=== PATIENT | female | born 1975 | race Caucasian/White ===

== ENCOUNTER 2018-08-20 10:46 | Emergency (ER) | payer BC, SELFPAY ==
[2018-08-20 10:49] VITALS: BP 172/92; PULSE 94; RESP 14; TEMP 36.7; O2SAT 100
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
== END 2018-08-20 11:27 | disposition home or self-care (01) ==
PROVIDERS: Emergency Provider Emergency Medicine; PCP Physician Assistant Medical
DX: S42.021A Displaced fracture of shaft of right clavicle, initial encounter for closed fracture (principal); V18.0XXA Pedal cycle driver injured in noncollision transport accident in nontraffic accident, initial encounter
CPT/HCPCS: 99283; 73000; 99282; L3650

== ENCOUNTER 2018-08-31 13:39 | Outpatient (CLI) | payer BC, SELFPAY ==
--- NOTE | 2018-08-31 13:29 | DI.RAD_ITS ---
SYMPTOM/DIAGNOSIS: F/U FX RIGHT CLAVICLE: Comparison is made with 08/20/18. There has been no change in the mid clavicle fracture.
== END 2018-08-31 13:59 ==
PROVIDERS: PCP Physician Assistant Medical; Visit Provider Student in an Organized Health Care Education/Training Program
DX: S42.021D Displaced fracture of shaft of right clavicle, subsequent encounter for fracture with routine healing (principal)
CPT/HCPCS: 73000

== ENCOUNTER 2018-09-21 09:47 | Outpatient (CLI) | payer BC, SELFPAY ==
--- NOTE | 2018-09-21 08:10 | DI.RAD_ITS ---
SYMPTOMS/DIAGNOSIS: F/U RT CLAVICLE FRACTURE RIGHT CLAVICLE: Two views. Comparison 08/31/18. There is again seen a fracture of the mid shaft of the right clavicle. The apex of the fracture is superiorly directed. There has been slight worsening of the displacement of the fracture since 08/31/18. No new fracture or dislocation is seen. IMPRESSION: Right mid clavicular fracture now with mild progressive displacement of the fracture noted since 08/31/18.
== END 2018-09-21 10:07 ==
PROVIDERS: PCP Physician Assistant Medical; Visit Provider Physician Assistant
DX: S42.021G Displaced fracture of shaft of right clavicle, subsequent encounter for fracture with delayed healing (principal)
CPT/HCPCS: 73000

== ENCOUNTER 2018-10-05 09:49 | Outpatient (CLI) | payer BC, SELFPAY ==
--- NOTE | 2018-10-05 08:44 | DI.RAD_ITS ---
SYMPTOMS/DIAGNOSIS: F/U RT CLOSED CLAVICLE FRACTURE RIGHT CLAVICLE: Two views. Comparison 09/21/18. There has been no change in alignment of the fracture of the mid shaft of the right clavicle. There is callous formation about the fracture site consistent with some interval healing. No new fractures or dislocations are present.
== END 2018-10-05 10:09 ==
PROVIDERS: PCP Physician Assistant Medical; Visit Provider Physician Assistant
DX: S42.021D Displaced fracture of shaft of right clavicle, subsequent encounter for fracture with routine healing (principal)
CPT/HCPCS: 73000

== ENCOUNTER 2019-01-29 06:54 | Day surgery (SDC) | payer BC, SELFPAY ==
[2019-01-29 07:27] VITALS: BP 158/99; PULSE 77; RESP 16; TEMP 36.6; O2SAT 98
[2019-01-29] MEDS: Lactated Ringers 1,000 ML 80 ML IV (07:50)
[2019-01-29] MEDS: ceFAZolin 1 GM/50 ML BAG IVPB (08:25)
[2019-01-29] MEDS: Bupivacaine 0.5% Pres-Free 30 ML VIAL (08:33)
[2019-01-29] MEDS: Lidocaine 1% Multi-Dose 50 ML VIAL (08:33)
[2019-01-29] MEDS: Dexamethasone 4 MG/ML VIAL (09:37)
--- NOTE | 2019-01-29 09:52 | W.PM.DSUDISC ---
Discharge Plan Disposition Patient Disposition: HOME Condition: Good Discharge Details Reason For Visit: HAV (R) Attending Provider: Finn Tucker Primary Care Provider: Corry Cordero V Home Meds and New Rx's Prescriptions: New hydrocodone-acetaminophen [[place]] 5-325 mg tablet 1 tab PO Q6H PRN (Reason: post op pain) Qty: 7 RF: 0 ibuprofen 600 mg tablet 600 mg PO Q6H Qty: 40 RF: 0 Continued fexofenadine [[place] Allergy] 180 mg Tablet 180 mg PO DAILY PRNRF: 0 albuterol sulfate [ProAir HFA] 90 mcg/actuation Hfa Aerosol Inhaler 2 puff INHALATION 6XD RF: 0 Flovent HFA 110 mcg/actuation Hfa Aerosol Inhaler 1 puff INHALATION BID RF: 0 bupropion HCl 150 mg Tablet Extended Release 24 Hr 150 mg PO QAM RF: 0 cholecalciferol (vitamin D3) [Vitamin D3] 1,000 unit Tablet,Chewable 1,000 unit PO DAILY RF: 0 Discharge Instructions Activity:: Elevate Remove Dressings/Wound Care:: Do Not Remove Shower/Bathe:: Cover Diet:: Normal Diet Discharge Orders Discharge Orders: Discharge Order (Routine); Ordered 01/29/19 Ordered By: Finn Tucker DS: Diagnosis Discharge Diagnosis (1) Hallux valgus (acquired), right foot: Start date: 01/29/19 Start time: 09:53 Status: Acute
[2019-01-29 10:20] VITALS: BP 151/97; PULSE 63; RESP 16; TEMP 36.3; O2SAT 99
--- NOTE | 2019-01-29 10:44 | ROE_ITS ---
DATE OF PROCEDURE: January 29, 2019 PREOPERATIVE DIAGNOSIS: Painful right hallux abductovalgus deformity. POSTOPERATIVE DIAGNOSIS: Same. PROCEDURE: Dean bunionectomy with internal fixation utilizing 3.5 Synthes cortical screws x2. SURGEON: Finn Tucker D.P.M. ANESTHESIA: General. ANESTHESIA PROVIDER: Raphael Parmar CRNA OPERATIVE INDICATIONS: 44-year-old female with progressive pain associated with a right bunion defor mity, which has not responded to nonoperative treatments. She understands risks and complications of surgery pertaining to pain, scarring, infection, wound dehiscence, over-correction, under-correction of the deformity; malunion, nonunion, delayed union of the osteotomy, difficulty with the hardware p otentially requiring hardware removal and/or revisional procedures. Informed consent has been obtain ed. There are no promises made to the final outcome of surgery. REPORT OF OPERATION: Sarahi was brought to the operative suite and placed in the supine position wh ere the right foot was prepped and draped in the usual sterile podiatric fashion. A time-out was per formed. Attention was directed to the right foot, which was exsanguinated, a well-padded ankle tourn iquet inflated 250 mmHg. Attention was directed to the first MPJ where a 5 cm incision was made medial parallel to the EHL ten don. The incision was deepened in controlled depth fashion; hemostasis acquired by electrocautery, a s needed. Dissection was carried down to the joint capsule. Contracture along the lateral side of t he joint was appreciated. A lateral capsulotomy was performed. The adductor tendon was released. T he fibular sesamoid was visualized; it was mobilized and appeared to go back under the first metatars al head with gentle manipulation. I decided to leave the sesamoid intact. Attention was now directed to the dorsomedial aspect of the first metatarsal head, where an inverted- L capsulotomy was performed. The joint capsule was reflected. Degenerative changes along the dorsal and medial aspect of the first metatarsal head were observed. A fairly large medial hyperostosis wa s noted. With power instrumentation the medial hyperostosis was resected. An offset-V osteotomy was then performed and the capital fragment translocated laterally and impacted. Temporary fixation was obtained with a K-Wire. A 2.7 screw, 14 mm in length, was then inserted and unfortunately had no pu rchase. The screw was removed and replaced by a 3.5 Synthes cortical screw, 14 mm in length, and exc ellent compression was noted. A second screw was then placed just lateral to the first; likewise a 2 .7 screw had no purchase; it was replaced with a 3.5, 16 mm Synthes cortical screw with excellent com pression. The medial shelf was then resected; all rough and bony edges were rasped smooth. Copious irrigation was performed. A medial capsulorrhaphy was performed and the medial capsule repaired with simple interrupted suture #3-0 Vicryl. The subcutaneous layer was repaired with simple interrupted suture #3-0 Vicryl. The subcuticular layer was brought together with #4-0 Vicryl and then a #4-0 Mon ocryl used to coapt the skin subcuticularly in a running fashion. Four milligrams of dexamethasone phosphate was infused deeply into the wound. Mastisol, half-inch Steri-Strips, Xeroform, fluffs, Ker lix rolls were applied. The tourniquet was released at 61 minutes with vascularity returning immedia tely to all toes. Sharp and sponge counts were correct. Sarahi left the OR with vital signs stable , vascular status intact. She will be followed by me in the office next week. cc: Corry Cordero M.D.
== END 2019-01-29 10:45 | disposition home or self-care (01) ==
PROVIDERS: PCP Family Medicine; Visit Provider Podiatrist
PROC: (CPT 28292; principal; 2019-01-29 08:30)
DX: M20.11 Hallux valgus (acquired), right foot (principal); M21.611 Bunion of right foot; M25.571 Pain in right ankle and joints of right foot; J45.909 Unspecified asthma, uncomplicated
CPT/HCPCS: 28292; 81025; J0690; J1100

== ENCOUNTER 2019-10-15 03:07 | Outpatient (CLI) | payer BC, SELFPAY ==
--- NOTE | 2019-10-15 | DI.MAMMO_ITS ---
EXAM: MAMMO SCREENING CLINICAL HISTORY: SCREENING, HEALTH MAINTENANCE, Z00.8 TECHNIQUE: Mammograms were interpreted according to the usual protocol including computer analysis w [employer] CAD system, tomosynthesis and C-view imaging. COMPARISON: FINDINGS: The breasts are heterogeneously dense. No dominant mass or clumped microcalcification is identified in either breast. The current examination is a baseline examination. IMPRESSION: No specific evidence of malignancy at this time. Routine screening examinations are suggested at yea rly intervals in this age group according to the ACS ACR guidelines. BI-RADS Cat 1 - Negative: Breast Density - Category C - Heterogeneously dense:
== END 2019-10-15 03:27 ==
PROVIDERS: PCP Family Medicine; Visit Provider Physician Assistant Medical
DX: Z12.31 Encounter for screening mammogram for malignant neoplasm of breast (principal); Z00.8 Encounter for other general examination; R92.2 Inconclusive mammogram
CPT/HCPCS: 77063; 77067

== ENCOUNTER 2021-01-09 11:50 | Outpatient (REF) | payer BC, SELFPAY ==
[2021-01-09 15:08] LABS: HCT 39.9 % (36.0-46.0); HGB 12.8 g/dL (11.2-15.7); MCH 31.6 pg (27.0-33.0); MCHC 32.1 % (32.0-36.0); MCV 98.5 fL (80-95); Platelet Count 384 10^3/uL (130-400); RBC 4.05 10^6/uL (3.93-5.22); RDW 13.6 % (11.7-14.6); RDW-SD 50.3 fL; WBC 8.02 10^3/uL (4.4-10.8)
[2021-01-09 15:14] LABS: Calculated LDL 101 mg/dL (<100); Cholesterol 206 mg/dL (<200); Glucose 114 mg/dL (74-106); HDL Cholesterol 93 mg/dL (40-60); Triglyceride 64 mg/dL (<150)
== END 2021-01-09 11:51 | disposition home or self-care (01) ==
LOC: NCHCN 11:50
PROVIDERS: PCP Family Medicine; Visit Provider Physician Assistant Medical
DX: R73.9 Hyperglycemia, unspecified (principal); Z00.8 Encounter for other general examination
CPT/HCPCS: 80061; 82947; 85027; 83036

== ENCOUNTER 2022-07-10 12:15 | Outpatient (REF) | payer OTHER, SELFPAY ==
--- NOTE | 2022-07-10 11:15 | PAPFT_PTH ---
PATIENT: Sarahi Jeronimo LOC: [facility]#:[id number] AGE/SX: 47/F ROOM: RE07/10/[address]: Huber Ramírez : 1975 BED: DIS: 07/10/2022 SPEC #: [id number] RECD: 07/10/22 17:52 STATUS: SHUKRIYvonne REQ #: [id number] MJ: 07/10/22 11:[address]: Hubre Ramírez DEPT: [facility] Cytology RECD BY: Leslie Armstrong ENTERED: 07/10/22 17:54 SP TYPE: PAPFT OTHR DR: Corry Cordero V Tissues: 1 - CX/ENDOCX FOR PAP SMEARS Procedures: PAP THIN PREP/UVM Screening HPV DNA PROBE Comments: [id number]
== END 2022-07-10 12:16 | disposition home or self-care (01) ==
LOC: NCHCN 12:15
PROVIDERS: PCP Family Medicine; Visit Provider Physician Assistant Medical
DX: Z12.4 Encounter for screening for malignant neoplasm of cervix (principal); Z11.51 Encounter for screening for human papillomavirus (HPV)
CPT/HCPCS: 88142; 87624

== ENCOUNTER 2022-08-01 02:15 | Outpatient (CLI) | payer OTHER, SELFPAY ==
--- NOTE | 2022-08-01 08:30 | DI.MAMMO_ITS ---
Exam(s) MAMMO SCREENING EXAM: MAMMO SCREENING CLINICAL HISTORY: SCREENING, Z12.31 TECHNIQUE: Bilateral full field digital CC and MLO mammographic images were obtained with 3D tomosyn thesis and utilizing computer aided detection (CAD). COMPARISON: Available for comparison. FINDINGS: Masses/Architectural Distortion: There is an asymmetric density in the superior right breast on the M LO view. This may represent overlying fibroglandular tissue but a spot compression views are request ed. Microcalcifications: No suspicious pleomorphic-type are seen. Skin Thickening/Nipple Retraction: None. IMPRESSION: 1. Asymmetric density in the superior right breast on the MLO view. 2. A spot compression views requested for further evaluation. Limited right breast ultrasound should be obtained for further evaluation. BI-RADS Category 0 - Assessment Incomplete: Need additional imaging evaluation Breast Density - Category C - Heterogeneously dense Breast density category C or D implies that the patient has dense breast tissue. Dense breast tissue is very common and is not abnormal but dense breast tissue can make it harder to find cancer on a ma mmogram. Also, dense breast tissue may increase their breast cancer risk. This information about the result of the mammogram report was provided to the patient to raise their awareness. Use this report when you speak with the patient about their risks for breast cancer, which includes their family hist ory. At that time, you may recommend for more screening tests (Ultrasound or MRI) as they might be us eful based on their risk. A negative radiographic report should not delay biopsy if a dominant or clinically suspicious mass is present. Up to ten percent of cancers are not identified on mammography. A negative report may reinforce clinical impression. Adenosis and dense breasts may obscure an underlying neoplasm. False positive reports average 6 to 10%. Patient will receive a letter notifying them of these results.
== END 2022-08-01 02:35 ==
PROVIDERS: PCP Family Medicine; Visit Provider Physician Assistant Medical
DX: Z12.31 Encounter for screening mammogram for malignant neoplasm of breast (principal); R92.8 Other abnormal and inconclusive findings on diagnostic imaging of breast
CPT/HCPCS: 77063; 77067

== ENCOUNTER 2022-08-08 03:29 | Outpatient (CLI) | payer OTHER, SELFPAY ==
--- NOTE | 2022-08-08 | DI.MAMMO_ITS ---
Exam(s) MAMMO SCREEN CALL BACK UNI US BREAST RT COMPLETE EXAM: MAMMO SCREEN CALL BACK UNI-RIGHT AND COMPLETE RIGHT BREAST ULTRASOUND CLINICAL HISTORY: F/U MAMMO, R92.8,ASYMMETRIC DENSITY. TECHNIQUE: Unilateral spot mammographic images obtained with 3D tomosynthesisand utilizing computer aided detection (CAD). . Complete RIGHT breast Ultrasound was also performed, including all 4 quadrants, the retroareolar amber on, and the ipsilateral axilla. COMPARISON: Prior mammograms were reviewed. This additional imaging was performed due to findings described on the recent screening mammogram of 08/01/2022. FINDINGS: DIAGNOSTIC MAMMOGRAM: Additional mammographic views performed todayrender this area less concerning. COMPLETE RIGHT BREAST ULTRASOUND: Ultrasound performed today reveals no evidence of solid or significant cystic lesions in all 4 quadra nts.. Scanning of the ipsilateral axilla reveals no significant adenopathy. IMPRESSION: 1. No radiographic evidence of malignancy. 2. NEGATIVE COMPLETE RIGHT BREAST ULTRASOUND Appropriate follow-up is to keep this patient on a yearly mammogram schedule, with earlier imaging i f a self detected breast change is noted.. The patient was informed of these findings and recommendations prior to leaving the department today. BI-RADS Category 2 - Benign Findings Breast Density - Category C - Heterogeneously dense Breast density Category C or D implies that the patient has dense breast tissue. Dense breast tissue can make it harder to find cancer on a mammogram. Dense breast tissue is also associated with an incr eased risk of breast cancer. This information about the result of the mammogram report was provided to the patient to raise their awareness. Use this report when you speak with the patient about their risks for breast cancer, which includes their family history. At that time, you may recommend additional screening tests (Ultrasoun d or MRI) as these tests may add significant information. A negative radiographic report should not delay biopsy if a dominant or clinically suspicious mass is present. Up to ten percent of cancers are not identified on mammography. A negative report may reinforce clinical impression. Adenosis and dense breasts may obscure an underlying neoplasm. False positive reports average 6 to 10%. Patient will receive a letter notifying them of these results.
== END 2022-08-08 03:49 ==
LOC: DI 03:30
PROVIDERS: PCP Family Medicine; Visit Provider Physician Assistant Medical
DX: Z12.31 Encounter for screening mammogram for malignant neoplasm of breast (principal); R92.8 Other abnormal and inconclusive findings on diagnostic imaging of breast
CPT/HCPCS: 76642; 77063; 77067

== ENCOUNTER 2024-06-10 01:25 | Outpatient (CLI) | payer BC, SELFPAY ==
--- NOTE | 2024-06-10 13:27 | DI.MAMMO_ITS ---
Exam(s) MAMMO SCREENING EXAM: MAMMO SCREENING CLINICAL HISTORY: Z12.31 Screening TECHNIQUE: Bilateral full field digital CC and MLO mammographic images were obtained with 3D tomosyn thesis and utilizing computer aided detection (CAD). COMPARISON: Available for comparison. FINDINGS: Masses/Architectural Distortion: None seen. Microcalcifications: No suspicious pleomorphic-type are seen. Skin Thickening/Nipple Retraction: None. IMPRESSION: 1. No significant interval change with no specific features of malignancy noted. 2. Unless there is more urgent need, screening mammography is recommended, as per [place] [employer] guidelines. BI-RADS Category 1 - Negative Breast Density - Category C - Heterogeneously dense Breast density category C or D implies that the patient has dense breast tissue. Dense breast tissue is very common and is not abnormal but dense breast tissue can make it harder to find cancer on a ma mmogram. Also, dense breast tissue may increase their breast cancer risk. This information about the result of the mammogram report was provided to the patient to raise their awareness. Use this report when you speak with the patient about their risks for breast cancer, which includes their family hist ory. At that time, you may recommend for more screening tests (Ultrasound or MRI) as they might be us eful based on their risk. A negative radiographic report should not delay biopsy if a dominant or clinically suspicious mass is present. Up to ten percent of cancers are not identified on mammography. A negative report may reinforce clinical impression. Adenosis and dense breasts may obscure an underlying neoplasm. False positive reports average 6 to 10%. Patient will receive a letter notifying them of these results.
== END 2024-06-10 01:45 ==
LOC: DI 01:25
PROVIDERS: PCP Family Medicine; Visit Provider Physician Assistant Medical
DX: Z12.31 Encounter for screening mammogram for malignant neoplasm of breast (principal); R92.333 Mammographic heterogeneous density, bilateral breasts
CPT/HCPCS: 77063; 77067